=== PATIENT | male | born 1960 | race Caucasian/White ===

== ENCOUNTER 2022-06-01 21:21 | Observation (INO) | payer OTHER ==
[2022-06-01] MEDS ORDERED: TAMSULOSIN HCL 0.4 MG CAP ONE (22:45)
[2022-06-01] MEDS: TAMSULOSIN HCL 0.4 MG CAP PO ONE ×2 (22:46→22:47)
[2022-06-01] MEDS ORDERED: LACTATED RINGERS SOLUTION 1000 ML INFUS.BAG IV ONE (23:31)
[2022-06-02] MEDS ORDERED: VALSARTAN 80 MG TABLET PO ONE (00:05)
[2022-06-02 00:40] LABS: HEMATOCRIT 45.5 % (35.4-49); HEMOGLOBIN 15.4 GM/dL (11.7-16.9); MCH 30.1 pg (25.7-33.7); MCHC 33.9 g/dl (32.0-35.9); MEAN PLT VOLUME 9.3 fl (7.5-11.1); PLATELET COUNT 247 10^3/uL (134-434); RBC 5.11 M/mm3 (4.00-5.60); RDW 12.8 % (11.9-15.9); WHITE BLOOD COUNT 22.2 K/mm3 (4.0-10.0)
[2022-06-02] MEDS ORDERED: MIDAZOLAM HCL 2 MG/2 ML SINGLE DOSE VIAL IVPUSH ONE ×2 (01:14→01:32)
[2022-06-02] MEDS ORDERED: MIDAZOLAM HCL 2 MG/2 ML SINGLE DOSE VIAL ONE ×2 (01:15→01:23)
[2022-06-02 01:31] LABS: CALCIUM 9.8 mg/dL (8.5-10.1)
[2022-06-02 01:35] LABS: CREATININE 0.8 mg/dL (0.55-1.3)
[2022-06-02 01:37] LABS: BLOOD UREA NITROGEN 15.7 mg/dL (7-18); TOT PROT 7.7 g/dl (6.4-8.2)
[2022-06-02 01:44] LABS: BILIRUBIN,TOTAL 0.5 mg/dL (0.2-1)
[2022-06-02] MEDS ORDERED: DOCUSATE SODIUM 100 MG CAPSULE (FP) PO PRN (02:19)
[2022-06-02] MEDS ORDERED: ACETAMINOPHEN 1000 MG/100 ML BAG IVPB PRN (02:27)
[2022-06-02 02:42] LABS: ANISOCYTOSIS 0; MACROCYTOSIS 0
[2022-06-02 03:12] VITALS: BMI 34.2
[2022-06-02 09:04] VITALS: RESP 18
[2022-06-02 09:27] LABS: CALCIUM 8.1 mg/dl (8.5-10)
[2022-06-02 09:53] LABS: HEMATOCRIT 41.7 % (35.4-49); HEMOGLOBIN 14.2 GM/dL (11.7-16.9); MCH 30.4 pg (25.7-33.7); MCHC 34.1 g/dl (32.0-35.9); MEAN CELL VOLUME 89.1 fl (80-96); MEAN PLT VOLUME 8.9 fl (7.5-11.1); PLATELET COUNT 236 10^3/uL (134-434); RBC 4.68 M/mm3 (4.00-5.60); RDW 13.5 % (11.9-15.9)
[2022-06-02] MEDS ORDERED: amLODIPine BESYLATE 10 MG TABLET (FP) PO SCH (10:00)
[2022-06-02 10:42] LABS: ANISOCYTOSIS 0; HELMET CELLS 0; HOWELL-JOLLY BODIES 0; MACROCYTOSIS 0; OVALOCYTE 0; ROULEAU 0; SICKELED CELLS 0; TARGET CELLS 0; TEAR DROP CELLS 0; TOXIC GRANULATION 0
[2022-06-02] MEDS ORDERED: CEFTRIAXONE 1 GM in DEXTROSE 5%-WATER - 50 ML IVPB SCH (11:45)
[2022-06-02 13:16] VITALS: BP 190/112; PULSE 96; TEMP 98.6
[2022-06-03] MEDS ORDERED: ACETAMINOPHEN 325 MG TABLET (FP) PO PRN (02:19)
== END 2022-06-02 17:35 | disposition left against medical advice (07) ==
LOC: FER 21:21 → FM/S 23:34 → UNDOADMOB 06-02 01:43
PROVIDERS: ADMIT Internal Medicine
PROC: 3E03329 Introduction of Other Anti-infective into Peripheral Vein, Percutaneous Approach (ICD-10-PCS; principal; 2022-06-01)
PROC: 3E033NZ Introduction of Analgesics, Hypnotics, Sedatives into Peripheral Vein, Percutaneous Approach (ICD-10-PCS; 2022-06-01)
DX: N13.2 Hydronephrosis with renal and ureteral calculous obstruction (principal); J98.4 Other disorders of lung; D09.9 Carcinoma in situ, unspecified; K76.0 Fatty (change of) liver, not elsewhere classified; Z88.0 Allergy status to penicillin
CPT/HCPCS: 36415; 74176-TC; 80048; 80053; 81003; 81015; 83605; 85025; 87040; 87086; 93005; 99285-25; C9803-CS; G0378; U0003; U0005